=== PATIENT | female | born 1960 | race Caucasian/White ===

== ENCOUNTER → 2020-03-10 13:36 | Outpatient (CLI) | payer MEDICAID, SELFPAY ==
--- NOTE | 2020-03-10 13:37 | CT_ITS ---
PROCEDURE: CT LUNG SCREENING CLINICAL INDICATION: LDCT Current smoker 40 pack year smoking history No prior COMPARISON: No exams were available for comparison TECHNIQUE: The exam was performed on a GE Light Speed [address] scanner using 2.90 mGy CTDI. A low dose helical CT CHEST was performed on a multi-detector scanner. All CT scans at the facility use one or more dose reduction, viz: automated exposure control, ma/kV adjustment per patient size (including targeted exams where dose is matched to indication, i.e. head), or iterative reconstruction technique. The LDCT was performed in a facility that meets the criteria for the screening program. Data regarding this exam was submitted to [employer] which is an approved registry. The order for this exam indicates that it came as a result of a lung cancer screening counseling shard decision-making visit that included all the elements required of such a visit including smoking cessation. The radiologist interpreting this exam meets the CMS criteria for the LDCT lung cancer screening program. The exam is reported using the Lung-RADS classification scale and reported to the ACR registry. NOTE: This study was performed for the specific purposes of lung cancer screening and is not an alternative to diagnostic chest CT. RADIATION DOSE: CTDI vol(CT dose Index-volume) = 2.90mG DLP (Dose Length Product) = 106.03 mGcm FINDINGS: Centrilobular emphysema, COPD 4 mm noncalcified nodule right middle lobe image 52. 3 mm noncalcified nodule right middle lobe image 53 6 mm subpleural nodule right lower lobe image 46. 5 mm nodule right lower lobe as ago esophageal recess image 29 3 mm nodule within the lingula image 33. 3 mm nodule within the left upper lobe laterally image 36 8 mm noncalcified nodule within the lingula along the left heart border image 51 6 mm noncalcified subpleural nodule left lower lobe image 63 4 mm noncalcified nodule left lower lobe image 55 and a 3 mm noncalcified subpleural nodule image 56 left lower lobe OTHER FINDINGS: There are few small mediastinal lymph nodes. The inferior vena cava is enlarged which may be seen with right heart strain. Scattered mildly prominent axillary lymph nodes are present. There are some small nodes in the pre cardial region IMPRESSION: Lung-RADS Category 4A Suspicious Follow-up: There are numerous noncalcified pulmonary nodules the largest within the lingula at 8 mm. These nodules could be inflammatory/infectious or neoplastic such as metastatic disease. Does patient have a known primary cancer? There also mildly prominent axillary lymph nodes. Recommendations: [address] Chest without and with contrast; PET/CT may be used when there is a greater than or equal to a 8 mm solid component. There is also prominence of the inferior vena cava which may be seen with right heart strain or failure Dictated by: Jame Dumont MD 03/22/2020 09:34 Jame Dumont MD in [place] 03/22/2020 09:34
[2020-03-10 15:25] VITALS: PULSE 66; PULSE 70
== END ==
PROVIDERS: PCP Nurse Practitioner Family; Visit Provider Internal Medicine Pulmonary Disease
DX: Z87.891 Personal history of nicotine dependence (principal); Z12.2 Encounter for screening for malignant neoplasm of respiratory organs; R06.00 Dyspnea, unspecified
CPT/HCPCS: 71271; 94060; 94618; 94640; 94726; 94729

== ENCOUNTER → 2020-06-16 13:53 | Outpatient (CLI) | payer MEDICAID, SELFPAY ==
--- NOTE | 2020-06-16 14:00 | CT_ITS ---
PROCEDURE: CT CHEST W CON CLINCAL INDICATION: PULMONARY NODULE,SOB,COUGH Follow up [place] wheezing COMPARISON: CT CT LUNG SCREENING from 03/10/2020 TECHNIQUE: IV Contrast: 75ml Isovue 370 Axial images obtained with sagittal and coronal reformats. All CT scans at the facility use one or more dose reduction, viz: automated exposure control, ma/kV adjustment per patient size (including targeted exams where dose is matched to indication, i.e. head), or iterative reconstruction technique. FINDINGS: HEART AND MEDIASTINAL STRUCTURES: No mediastinal or hilar adenopathy. No evidence of aortic aneurysm or dissection. No evidence of pulmonary embolus. LUNGS AND PLEURAL SPACES: COPD changes. Numerous small bilateral pulmonary nodules are once again noted and are not significantly changed. No new nodules identified. Atelectatic or fibrotic changes are present in the right lung base. BONY STRUCTURES: No acute bony abnormalities apparent. UPPER ABDOMEN: Enlarged inferior vena cava and left renal vein is once again noted. ADDITIONAL FINDINGS: No other significant abnormalities. IMPRESSION: No change multiple small bilateral pulmonary nodules. Continued six-month follow-up suggested to confirm 1 year stability. COPD changes. Enlarged inferior vena cava and left renal vein. This is incompletely imaged. CT abdomen pelvis with contrast may provide further evaluation. Dictated by: Jame Dumont MD 06/17/2020 09:19 Jame Dumont MD in [place] 06/17/2020 09:19
== END ==
PROVIDERS: PCP Nurse Practitioner Family; Visit Provider Emergency Medicine
DX: R06.02 Shortness of breath (principal); R05 Cough; R91.1 Solitary pulmonary nodule
CPT/HCPCS: 71260; Q9967

== ENCOUNTER → 2021-03-12 14:59 | Outpatient (CLI) | payer MEDICAID, SELFPAY ==
--- NOTE | 2021-03-12 14:59 | CT_ITS ---
FINAL REPORT TECHNIQUE: Axial images were obtained through the chest without contrast. CLINICAL HISTORY: 9 mth F/U COMPARISON: March 10, 2020 and June 16, 2020 FINDINGS: The lungs are clear. The heart size is normal. There is no pericardial or pleural effusion. Limited images of the upper abdomen are unremarkable. On the lung window images there are mild changes of centrilobular emphysema. There is a noncalcified nodule along the left heart border measuring 6 mm ,unchanged, seen on image 148. There is a stable 3 mm nodule in the posterior left lower lobe on image 167 of series 3. There is a stable 5 mm pleural based nodule in the posterior right hemithorax on image 150 of series 3. There is a stable 4 mm nodule in the right middle lobe on image 149 of series 3. Note is made of streak artifact from orthopedic hardware in the lumbar spine. IMPRESSION: Multiple bilateral noncalcified nodules, stable compared to previous exams, favor post inflammatory. Recommend follow-up in 1 year. Reviewed, Interpreted and Dictated by Adair Stephens MD Transcribed by Krysta Girard Authenticated by Adair Stephens MD on 03/16/2021 11:24:54 AM [facility]
== END ==
PROVIDERS: PCP Nurse Practitioner Family; Visit Provider Internal Medicine Pulmonary Disease
DX: R91.8 Other nonspecific abnormal finding of lung field (principal)
CPT/HCPCS: 71250

== ENCOUNTER → 2021-12-29 12:45 | Outpatient (CLI) | payer MEDICAID, SELFPAY ==
--- NOTE | 2021-12-29 13:10 | PC.NURSE ---
PRE and POST PFT completed without incident. Albuterol 0.083% given via HHN, per protocol, Pt tolerated tx well.
== END ==
PROVIDERS: PCP Nurse Practitioner Family; Visit Provider Internal Medicine Pulmonary Disease
DX: J44.9 Chronic obstructive pulmonary disease, unspecified (principal)
CPT/HCPCS: 94060

== ENCOUNTER → 2022-11-04 12:44 | Outpatient (CLI) | payer MEDICAID, SELFPAY ==
--- NOTE | 2022-11-04 12:45 | CT_ITS ---
FINAL REPORT CLINICAL HISTORY: lung cancer screening SMOKES 1 PK PER DAY X 50 YRS COPD, FAMILY HX OF LUNG CA COMPARISON: 03/12/2021 FINDINGS: CT CHEST LOW DOSE SCREENING HISTORY: Screening exam for lung cancer. Current smoker, 50 pack year smoking history DOSE: CTDIvol: 2.9 mGy, DLP: 121.68 mGy*cm COMPARISON: 03/12/2021. TECHNIQUE: Axial CT without IV contrast administration using low dose protocol FINDINGS: A left subclavian pacer is present. There are moderate changes of emphysema present. There is mild scarring noted bilaterally, and a calcified granuloma in the right lung base. There are multiple small less than 5 mm in size nodules noted in the lung omer bilaterally. There is a 5 mm nodule adjacent to the left heart border seen on image #56, stable since the prior CT. There is another nodule in the right middle lobe, 4 mm in size, also stable and seen best on image #48. No pleural or pericardial effusion is seen . No adenopathy or mass lesion is present . IMPRESSION: Multiple small bilateral nodules, stable since the prior CT of February 2021. LUNG RADS CATEGORY 2 RECOMMENDATION: 12 month LDCT follow up Reviewed, Interpreted and Dictated by Erik Diaz III, MD Transcribed by Alicia Sykes Authenticated and [facility]
== END ==
PROVIDERS: PCP Nurse Practitioner Family; Visit Provider Internal Medicine Pulmonary Disease
DX: F17.210 Nicotine dependence, cigarettes, uncomplicated (principal)
CPT/HCPCS: 71271

== ENCOUNTER → 2022-11-07 14:48 | Outpatient (CLI) | payer MEDICAID, SELFPAY | PROVIDERS: PCP Nurse Practitioner Family; Visit Provider Internal Medicine Pulmonary Disease | DX: J32.9 Chronic sinusitis, unspecified (principal); B96.29 Other Escherichia coli [E. coli] as the cause of diseases classified elsewhere | CPT/HCPCS: 87070; 87077; 87186; 87205 ==